=== PATIENT | female | born 1985 | race Caucasian/White ===

== ENCOUNTER 2017-11-25 12:08 | Emergency (ER) | payer OTHER ==
[2017-11-25 12:29] VITALS: BP 110/68; PULSE 74; RESP 18; TEMP 97.1
--- NOTE | 2017-11-25 12:58 | ED ---
General Adult HPI - General Chief complaint: Skin/Abscess/Foreign Body Stated complaint: hand swelling and arm drainage Time Seen by Provider: 11/25/17 12:31 Source: patient, RN notes reviewed Mode of arrival: ambulatory Limitations: no limitations - History of Present Illness Initial comments: 32-year-old female who presents emergency room today with chief complaint of an abscess to the left forearm. She does admit to a history of IV drug abuse. She states she was at [facility] this past Wednesday. She's been on antibiotics last 5 days. She states they did drain the abscess. She was worried because she still experiencing some pain locally. She does admit to some swelling. Denies any other complaints or symptoms. Patient denies any recent fever, chills, shortness of breath, chest pain, back pain, abdominal pain , nausea or vomiting, numbness or tingling,headaches or visual changes, or any other complaints. - Related Data Previous Rx's Medication Instructions Recorded Cephalexin [Keflex] 500 mg PO Q12HR 7 Days cap 11/25/17 Allergies Allergy/AdvReac Type Severity Reaction Status Date / Time erythromycin base Allergy Anaphylaxis Verified 11/25/17 12:29 Penicillins Allergy Rash/Hives Verified 11/25/17 12:29 Review of Systems ROS Statement: Those systems with pertinent positive or pertinent negative responses have been documented in the HPI. ROS Other: All systems not noted in ROS Statement are negative. Past Medical History Past Medical History: No Reported History History of Any Multi-Drug Resistant Organisms: None Reported Past Surgical History: Section Past Psychological History: No Psychological Hx Reported Smoking Status: Current every day smoker Past Alcohol Use History: None Reported Past Drug Use History: IV Drug Use General Exam - General Exam Comments Initial Comments: General: The patient is awake and alert, in no distress, and does not appear acutely ill. Neck: The neck is supple, there is no tenderness or JVD. Cardiovascular: There is a regular rate and rhythm. No murmur, rub or gallop is appreciated. Respiratory: Lungs are clear to auscultation, respirations are non-labored, breath sounds are equal. No wheezes, stridor, rales, or rhonchi. Musculoskeletal: Full range motion. Sensation intact. Pulses equal bilateral 2 + per strength is 5/5. Neurological: A&O x 3. CN II-XII intact, There are no obvious motor or sensory deficits. Coordination appears grossly intact. Speech is normal. Skin: Patient's abscess shows improvement there is no redness swelling or fluctuance locally to the abscess area that is at the midforearm. She does have a wound that is draining just bloody drainage at this time. Mild swelling down to the hand which appears to be from the wrap that was too tight on the forearm. There is no redness swelling or sign of infection in these areas. Psychiatric: Normal mood and affect. Limitations: no limitations Course Vital Signs 11/25/17 12:25 Temperature 97.1 F L Pulse Rate 74 Respiratory 18 Rate Blood Pressure 110/68 O2 Sat by Pulse 98 Oximetry Medical Decision Making - Medical Decision Making Case was discussed with attending physician Dr. [place]. Patient's vitals are stable is no fever. The abscess appears to be healing well. The swelling down to the hand appears to be from the wrap and dressing that she had that was too tight. Advised patient to make sure that this should elevate the area. Advised to use warm compresses. She is asking for something for pain and advised to continue with anti-inflammatories at this time will be provided a antibiotic of Keflex to be added to the Bactrim to cover for infection. Disposition Clinical Impression: Abscess Disposition: HOME SELF-CARE Condition: Good Instructions: Abscess (ED) Additional Instructions: Please use medication as discussed. Please follow-up with family doctor in the next 2 days of symptoms have not improved. Please return to emergency room if the symptoms increase or worsen or for any other concerns. Prescriptions: Cephalexin [Keflex] 500 mg PO Q12HR 7 Days cap Referrals: None,Stated [Primary Care Provider] - 1-2 days Time of Disposition: 13:00
== END 2017-11-25 13:17 | disposition home or self-care (01) ==
LOC: EC 12:08
DX: L02.414 Cutaneous abscess of left upper limb (principal); F17.200 Nicotine dependence, unspecified, uncomplicated; Z88.0 Allergy status to penicillin; Z88.1 Allergy status to other antibiotic agents
CPT/HCPCS: 99282

== ENCOUNTER 2024-02-18 13:11 | Emergency (ER) | payer OTHER ==
--- NOTE | 2024-02-18 13:50 | ED ---
Abdominal Pain HPI - General Source: patient, RN notes reviewed Mode of arrival: ambulatory Limitations: no limitations <Peyton Diego - Last Filed: 02/18/24 13:49> - General Source: RN notes reviewed <Stephania Last - Last Filed: 02/18/24 18:31> - General Chief Complaint: Abdominal Pain Stated Complaint: Abd pain Time Seen by Provider: 02/18/24 13:50 - History of Present Illness Initial Comments: Note: 38-year-old female presented to ER with a chief complaint of abdominal pain. She reports she has been experiencing generalized abdominal pain for the past 2 days. She denies any fevers, nausea, vomiting, constipation/diarrhea or urinary complaints. (Peyton Diego) 38-year-old female presenting to the ER with chief complaint of abdominal pain x 2 days. She reports she feels as though there is a "knot in her stomach". States the knot is more prominent when she stands. There is pain surrounding the knot and patient is experiencing some nausea as well but denies fever, vomiting, diarrhea, dysuria, urinary frequency or urgency. (Stephania Last) - Related Data Previous Rx's Medication Instructions Recorded Cephalexin [Keflex] 500 mg PO Q12HR 7 Days cap 11/25/17 Allergies Allergy/AdvReac Type Severity Reaction Status Date / Time erythromycin base Allergy Anaphylaxis Verified 02/18/24 13:34 Penicillins Allergy Rash/Hives Verified 02/18/24 13:34 Review of Systems ROS Other: All systems not noted in ROS Statement are negative. <Peyton Diego - Last Filed: 02/18/24 13:49> ROS Other: All systems not noted in ROS Statement are negative. <Stephania Last - Last Filed: 02/18/24 18:31> ROS Statement: Those systems with pertinent positive or pertinent negative responses have been documented in the HPI. Past Medical History Past Medical History: No Reported History History of Any Multi-Drug Resistant Organisms: None Reported Past Surgical History: Section Past Psychological History: No Psychological Hx Reported Past Alcohol Use History: None Reported Past Drug Use History: IV Drug Use <Peyton Diego - Last Filed: 02/18/24 13:49> General Exam <Peyton Digeo - Last Filed: 02/18/24 13:49> General appearance: alert, in no apparent distress Head exam: Present: atraumatic, normocephalic, normal inspection Eye exam: Present: normal appearance, PERRL, EOMI. Absent: scleral icterus, conjunctival injection, periorbital swelling ENT exam: Present: normal exam, mucous membranes moist Neck exam: Present: normal inspection. Absent: tenderness, meningismus, lymphadenopathy Respiratory exam: Present: normal lung sounds bilaterally. Absent: respiratory distress, wheezes, rales, rhonchi, stridor Cardiovascular Exam: Present: regular rate, normal rhythm, normal heart sounds. Absent: systolic murmur, diastolic murmur, rubs, gallop, clicks GI/Abdominal exam: Present: soft, normal bowel sounds, hernia (Hernia palpated above umbilicus with mild tenderness. No discoloration or skin changes to the area.). Absent: distended, tenderness, guarding, rebound, rigid Extremities exam: Present: normal inspection, full ROM, normal capillary refill. Absent: tenderness, pedal edema, joint swelling, calf tenderness Neurological exam: Present: alert, oriented X3, CN II-XII intact Psychiatric exam: Present: normal affect, normal mood Skin exam: Present: warm, dry, intact, normal color. Absent: rash <Stephania Last - Last Filed: 02/18/24 18:31> - General Exam Comments Initial Comments: Visual Physical Exam Vital signs reviewed General: Well-appearing, nontoxic, no acute distress. Head: Normocephalic, atraumatic Eyes: PERRLA, EOMI ENT: Airway patent Chest: Nonlabored breathing Skin: No visual rash, normal skin tone Neuro: Alert and oriented 3 Musculoskeletal: No gross abnormalities (Peyton Diego) Course Vital Signs 02/18/24 02/18/24 02/18/24 13:30 17:21 17:52 Temperature 98.2 F 98 F 98 F Pulse Rate 71 67 69 Respiratory 18 18 18 Rate Blood Pressure 127/89 130/81 O2 Sat by Pulse 100 99 99 Oximetry Medical Decision Making <Peyton Diego - Last Filed: 02/18/24 13:49> - Lab Data Result diagrams: 02/18/24 14:19 02/18/24 14:19 <Stephania Last - Last Filed: 02/18/24 18:31> - Medical Decision Making I performed the quick note portion of this chart. Electronically signed by Peyton Diego PA-C (Peyton Diego) Was pt. sent in by a medical professional or institution (KRISTINE Urbano, PLAYERS ASSISTANT, urgent care, hospital, or custodial...) When possible be specific @ -Sent by [facility] for ventral hernia Did you speak to anyone other than the patient for history (EMS, parent, family, police, friend...)? What history was obtained from this source @ -No Did you review nursing and triage notes (agree or disagree)? Why? @ -I reviewed and agree with nursing and triage notes Were old charts reviewed (outside hosp., previous admission, EMS record, old EKG, old radiological studies, urgent care reports/EKG's, custodial records)? Report findings @ -No old charts were reviewed Differential Diagnosis (chest pain, altered mental status, abdominal pain women, abdominal pain men, vaginal bleeding, weakness, fever, dyspnea, syncope, headache, dizziness, GI bleed, back pain, seizure, CVA, palpatations, mental health, musculoskeletal)? @ -Differential Abdominal Pain Women: Appendicitis, Cholecystitis, diverticulosis, ischemic bowel, pancreatitis, hepatitis, UTI, gastroenteritis, AAA, incarcerated hernia, bowel obstruction, co nstipation, inflammatory bowel, hepatitis, peptic ulcer disease, splenic infarction, perforated viscus, vulvitis, ovarian torsion, PID, kidney stone, placenta abruption, this is not meant to be an all-inclusive list EKG interpreted by me (3pts min.). @ -None X-rays interpreted by me (1pt min.). @ -None done CT interpreted by me (1pt min.). @ -None done U/S interpreted by me (1pt. min.). @ -None done What testing was considered but not performed or refused? (CT, X-rays, U/S, labs)? Why? @ -Imaging not indicated at this time due to no signs or symptoms of strangulation What meds were considered but not given or refused? Why? @ -None Did you discuss the management of the patient with other professionals (professionals i.e. KRISTINE Urbano, PLAYERS ASSISTANT, lab, RT, psych nurse, social services director, microbiology manager, teacher, public records officer, case loader operator)? Give summary @ -No Was smoking cessation discussed for >3mins.? @ -No Was critical care preformed (if so, how long)? @ -No Were there social determinants of health that impacted care today? How? (Homelessness, low income, unemployed, alcoholism, drug addiction, transport ation, low edu. Level, literacy, decrease access to med. care, senior living, rehab)? @ -No Was there de-escalation of care discussed even if they declined (Discuss DNR or withdrawal of care, Hospice)? DNR status @ -No What co-morbidities impacted this encounter? (DM, HTN, Smoking, COPD, CAD, Cancer, CVA, ARF, Chemo, Hep., AIDS, mental health diagnosis, sleep apnea, morbid obesity)? @ -None Was patient admitted / discharged? Hospital course, mention meds given and route, prescriptions, significant lab abnormalities, going to OR and other pertinent info. @ -Patient was discharged. Patient was seen and evaluated for abdominal pain x 2 days. Vital signs are within normal limits. Physical examination remarkable for reducible umbilical hernia with no signs of strangulation. Lab work unremarkable, lactic acid negative. Urine is unremarkable. Discussed with patient diagnosis of umbilical hernia, discussed there are no signs of strangulation or incarceration upon examination today. Surgery referral given. Strict return/alarm symptoms discussed with patient in detail and patient shows understanding and agrees to plan. Patient discharged in stable condition. Case discussed with Dr. Mike. Undiagnosed new problem with uncertain prognosis? @ -No Drug Therapy requiring intensive monitoring for toxicity (Heparin, Nitro, Insulin, Cardizem)? @ -No Were any procedures done? @ -No Diagnosis/symptom? @ -Umbilical hernia Acute, or Chronic, or Acute on Chronic? @ -Acute Uncomplicated (without systemic symptoms) or Complicated (systemic symptoms)? @ -Uncomplicated Side effects of treatment? @ -No Exacerbation, Progression, or Severe Exacerbation? @ -No Poses a threat to life or bodily function? How? (Chest pain, USA, [place], pneumonia, PE, COPD, DKA, ARF, appy, cholecystitis, CVA, Diverticulitis, Homicidal, Suicidal, threat to staff... and all critical care pts) @ -Low likelihood (Stephania Last) - Lab Data Lab Results 02/18/24 02/18/24 02/18/24 Range/Units 14:19 14:19 14:19 WBC 4.4 (3.8-10.6) k/uL RBC 4.34 (3.80-5.40) m/uL Hgb 11.5 (11.4-16.0) gm/dL Hct 35.7 (34.0-46.0) % MCV 82.1 (80.0-100.0) fL MCH 26.6 (25.0-35.0) pg MCHC 32.3 (31.0-37.0) g/dL RDW 15.9 H (11.5-15.5) % Plt Count 153 (150-450) k/uL MPV 9.5 Neutrophils % 47 % Lymphocytes % 40 % Monocytes % 5 % Eosinophils % 5 % Basophils % 1 % Neutrophils # 2.1 (1.3-7.7) k/uL Lymphocytes # 1.8 (1.0-4.8) k/uL Monocytes # 0.2 (0-1.0) k/uL Eosinophils # 0.2 (0-0.7) k/uL Basophils # 0.0 (0-0.2) k/uL Sodium (137-145) mmol/L Potassium (3.5-5.1) mmol/L Chloride (98-107) mmol/L Carbon Dioxide (22-30) mmol/L Anion Gap mmol/L BUN (7-17) mg/dL Creatinine (0.52-1.04) mg/dL Est GFR (CKD-EPI)AfAm (>60 ml/min/1.73 sqM) Est GFR (CKD-EPI)NonAf (>60 ml/min/1.73 sqM) Glucose (74-99) mg/dL Plasma Lactic Acid Logan (0.7-2.0) mmol/L Calcium (8.4-10.2) mg/dL Total Bilirubin (0.2-1.3) mg/dL AST (14-36) U/L ALT (4-34) U/L Alkaline Phosphatase (38-126) U/L Total Protein (6.3-8.2) g/dL Albumin (3.5-5.0) g/dL Amylase (30-110) U/L Lipase (23-300) U/L Urine Color Light Yellow Urine Appearance Clear (Clear) Urine pH 7.5 (5.0-8.0) Ur Specific Eva 1.013 (1.001-1.035) Urine Protein Negative (Negative) Urine Glucose (UA) Negative (Negative) Urine Ketones Negative (Negative) Urine Blood Negative (Negative) Urine Nitrite Negative (Negative) Urine Bilirubin Negative (Negative) Urine Urobilinogen <2.0 (<2.0) mg/dL Ur Leukocyte Esterase Negative (Negative) Urine HCG, Qual Not Detected (Not Detectd) 02/18/24 02/18/24 Range/Units 14:19 14:19 WBC (3.8-10.6) k/uL RBC (3.80-5.40) m/uL Hgb (11.4-16.0) gm/dL Hct (34.0-46.0) % MCV (80.0-100.0) fL MCH (25.0-35.0) pg MCHC (31.0-37.0) g/dL RDW (11.5-15.5) % Plt Count (150-450) k/uL MPV Neutrophils % % Lymphocytes % % Monocytes % % Eosinophils % % Basophils % % Neutrophils # (1.3-7.7) k/uL Lymphocytes # (1.0-4.8) k/uL Monocytes # (0-1.0) k/uL Eosinophils # (0-0.7) k/uL Basophils # (0-0.2) k/uL Sodium 134 L (137-145) mmol/L Potassium 5.1 (3.5-5.1) mmol/L Chloride 105 (98-107) mmol/L Carbon Dioxide 26 (22-30) mmol/L Anion Gap 3 mmol/L BUN 21 H (7-17) mg/dL Creatinine 0.95 (0.52-1.04) mg/dL Est GFR (CKD-EPI)AfAm 88 (>60 ml/min/1.73 sqM) Est GFR (CKD-EPI)NonAf 77 (>60 ml/min/1.73 sqM) Glucose 93 (74-99) mg/dL Plasma Lactic Acid Logan 0.9 (0.7-2.0) mmol/L Calcium 8.5 (8.4-10.2) mg/dL Total Bilirubin 0.4 (0.2-1.3) mg/dL AST 100 H (14-36) U/L ALT 78 H (4-34) U/L Alkaline Phosphatase 107 (38-126) U/L Total Protein 6.2 L (6.3-8.2) g/dL Albumin 3.3 L (3.5-5.0) g/dL Amylase 66 (30-110) U/L Lipase 186 (23-300) U/L Urine Color Urine Appearance (Clear) Urine pH (5.0-8.0) Ur Specific Eva (1.001-1.035) Urine Protein (Negative) Urine Glucose (UA) (Negative) Urine Ketones (Negative) Urine Blood (Negative) Urine Nitrite (Negative) Urine Bilirubin (Negative) Urine Urobilinogen (<2.0) mg/dL Ur Leukocyte Esterase (Negative) Urine HCG, Qual (Not Detectd) Disposition <Peyton Diego - Last Filed: 02/18/24 13:49> Is patient prescribed a controlled substance at d/c from ED?: No Time of Disposition: 17:29 <Stephania Last - Last Filed: 02/18/24 18:31> Clinical Impression: Umbilical hernia without obstruction or gangrene Disposition: HOME SELF-CARE Condition: Stable Instructions (If sedation given, give patient instructions): Umbilical Hernia (ED) Additional Instructions: Please follow-up with surgery. Please return to the Emergency Department if symptoms worsen or any other concerns. Referrals: Jet Reid DO [Primary Care Provider] - 1-2 days Helder Dhillon MD [STAFF PHYSICIAN] - 1-2 days
[2024-02-18 14:13] VITALS: RESP 18
[2024-02-18 15:00] LABS: Appearance,Urine Clear (Clear); Bilirubin,Urine Negative (Negative); Blood,Urine Negative (Negative); Color,Urine Light Yellow; Glucose,Urine (UA) Negative (Negative); Ketones,Urine Negative (Negative); Leukocyte Esterase,Urine Negative (Negative); Nitrite,Urine Negative (Negative); PH, Urine 7.5 (5.0-8.0); Protein,Urine Negative (Negative); Specific Gravity,Urine 1.013 (1.001-1.035); Urobilinogen,Urine <2.0 mg/dL (<2.0)
[2024-02-18 15:26] LABS: Basophils % (A) 1 %; Eosinophils # (A) 0.2 k/uL (0-0.7); Eosinophils % (A) 5 %; HCT 35.7 % (34.0-46.0); HGB 11.5 gm/dL (11.4-16.0); Lymphocytes # (A) 1.8 k/uL (1.0-4.8); Lymphocytes % (A) 40 %; MCH 26.6 pg (25.0-35.0); MCHC 32.3 g/dL (31.0-37.0); MCV 82.1 fL (80.0-100.0); Mean Platelet Volume 9.5; Monocytes # (A) 0.2 k/uL (0-1.0); Monocytes % (A) 5 %; Neutrophils # (A) 2.1 k/uL (1.3-7.7); Neutrophils % (A) 47 %; Platelet Count 153 k/uL (150-450); RBC 4.34 m/uL (3.80-5.40); RDW 15.9 % (11.5-15.5); WBC 4.4 k/uL (3.8-10.6)
[2024-02-18 15:34] LABS: ALT 78 U/L (4-34); African American GFR (CKD) 88 (>60 ml/min/1.73 sqM); Albumin 3.3 g/dL (3.5-5.0); Alkaline Phosphatase 107 U/L (38-126); Amylase 66 U/L (30-110); Anion Gap 3 mmol/L; Blood Urea Nitrogen 21 mg/dL (7-17); Calcium 8.5 mg/dL (8.4-10.2); Carbon Dioxide 26 mmol/L (22-30); Chloride 105 mmol/L (98-107); Glucose 93 mg/dL (74-99); Lipase 186 U/L (23-300); Non-African American GFR(CKD) 77 (>60 ml/min/1.73 sqM); Sodium 134 mmol/L (137-145); Total Protein 6.2 g/dL (6.3-8.2)
[2024-02-18 15:35] LABS: Potassium 5.1 mmol/L (3.5-5.1); Total Bilirubin 0.4 mg/dL (0.2-1.3)
[2024-02-18 15:36] LABS: AST 100 U/L (14-36)
[2024-02-18] MEDS: IBUPROFEN 600 MG TAB PO STA (15:47)
[2024-02-18 17:31] VITALS: TEMP 98
[2024-02-18 18:15] VITALS: BP 130/81; PULSE 69
== END 2024-02-18 17:54 | disposition home or self-care (01) ==
LOC: EC 13:11
DX: K42.9 Umbilical hernia without obstruction or gangrene (principal); Z88.0 Allergy status to penicillin; Z88.6 Allergy status to analgesic agent
CPT/HCPCS: 36415; 80053; 81003; 81025; 82150; 83605; 83690; 85025; 99284

== ENCOUNTER 2024-02-19 22:17 | Emergency (ER) | payer OTHER ==
[2024-02-19 22:58] LABS: Amorphous Sediment,Urine Rare /hpf; Appearance,Urine Clear (Clear); Bacteria,Urine Moderate /hpf; Bilirubin,Urine Negative (Negative); Blood,Urine Negative (Negative); Color,Urine Colorless; Glucose,Urine (UA) Negative (Negative); Hyaline Casts,Urine 3 /lpf (0-2); Ketones,Urine Negative (Negative); Leukocyte Esterase,Urine Small (Negative); Nitrite,Urine Negative (Negative); PH, Urine 6.5 (5.0-8.0); Protein,Urine Negative (Negative); RBC,Urine 1 /hpf (0-5); Specific Gravity,Urine 1.009 (1.001-1.035); Squamous Epithelial Cell,Urine 5 /hpf (0-4); Urobilinogen,Urine <2.0 mg/dL (<2.0); WBC,Urine 13 /hpf (0-5)
[2024-02-19 23:10] VITALS: RESP 18
--- NOTE | 2024-02-20 00:49 | ED ---
Abdominal Pain HPI - General Source: EMS Mode of arrival: EMS Limitations: no limitations <Josh Crawford - Last Filed: 02/20/24 00:49> <Melecio Olguin - Last Filed: 02/20/24 06:23> - General Chief Complaint: Abdominal Pain Stated Complaint: hernia Time Seen by Provider: 02/20/24 00:37 - History of Present Illness Initial Comments: Quicknote 38-year-old female with a known umbilical hernia presenting to the ED with complaints of abdominal pain. Patient reports known umbilical hernia and was seen for this yesterday. Patient reports continued pain prompting presentation to the ED for further evaluation. Patient reports no changes in bowel habits. (Josh Crawford) - Related Data Previous Rx's Medication Instructions Recorded Cephalexin [Keflex] 500 mg PO Q12HR 7 Days cap 11/25/17 Allergies Allergy/AdvReac Type Severity Reaction Status Date / Time erythromycin base Allergy Anaphylaxis Verified 02/19/24 22:29 Penicillins Allergy Rash/Hives Verified 02/19/24 22:29 Review of Systems ROS Other: All systems not noted in ROS Statement are negative. <Josh Crawford - Last Filed: 02/20/24 00:49> ROS Other: All systems not noted in ROS Statement are negative. <Melecio Olguin - Last Filed: 02/20/24 06:23> ROS Statement: Those systems with pertinent positive or pertinent negative responses have been documented in the HPI. Past Medical History Past Medical History: No Reported History History of Any Multi-Drug Resistant Organisms: None Reported Past Surgical History: Section Past Psychological History: No Psychological Hx Reported Smoking Status: Current every day smoker Past Alcohol Use History: None Reported Past Drug Use History: Cocaine, IV Drug Use <Josh Crawford - Last Filed: 02/20/24 00:49> General Exam Limitations: no limitations <Josh Crawford - Last Filed: 02/20/24 00:49> - General Exam Comments Initial Comments: Visual Physical Exam Vital signs reviewed General: Well-appearing, nontoxic, no acute distress. Head: Normocephalic, atraumatic Eyes: PERRLA, EOMI ENT: Airway patent Chest: Nonlabored breathing Skin: No visual rash, normal skin tone Neuro: Alert and oriented 3 Musculoskeletal: No gross abnormalities (Josh Crawford) Course Vital Signs 02/19/24 22:28 Temperature 98.2 F Pulse Rate 70 Respiratory 18 Rate Blood Pressure 117/82 O2 Sat by Pulse 100 Oximetry Medical Decision Making <TyJosh - Last Filed: 02/20/24 00:49> <Melecio Olguin - Last Filed: 02/20/24 06:23> - Medical Decision Making Quicknote portion performed. Signed Josh Crawford PA-C (Josh Crawford) Was pt. sent in by a medical professional or institution ([facility]STINE Urbano, BANK ADVISOR, urgent care, hospital, or shelter...) When possible be specific @ -No Did you speak to anyone other than the patient for history (EMS, parent, family, police, friend...)? What history was obtained from this source @ -No Did you review nursing and triage notes (agree or disagree)? Why? @ -I reviewed and agree with nursing and triage notes Were old charts reviewed (outside hosp., previous admission, EMS record, old EKG, old radiological studies, urgent care reports/EKG's, shelter records)? Report findings @ -No old charts were reviewed Differential Abdominal Pain Women: Appendicitis, Cholecystitis, diverticulosis, ischemic bowel, pancreatitis, hepatitis, UTI, gastroenteritis, AAA, incarcerated hernia, bowel obstruction, constipation, inflammatory bowel, hepatitis, peptic ulcer disease, splenic infarction, perforated viscus, vulvitis, ovarian torsion, PID, kidney stone, placenta abruption, this is not meant to be an all-inclusive list EKG interpreted by me (3pts min.). @ -As above X-rays interpreted by me (1pt min.). @ -None done CT interpreted by me (1pt min.). @ -CT showing 2 ventral hernias without bowel obstruction. U/S interpreted by me (1pt. min.). @ -None done What testing was considered but not performed or refused? (CT, X-rays, U/S, labs)? Why? @ -None What meds were considered but not given or refused? Why? @ -None Did you discuss the management of the patient with other professionals (professionals i.e. , KRISTINE, BANK ADVISOR, lab, RT, psych nurse, social work specialist, photo specialist, teacher, technology officer, case mgr)? Give summary @ -No Was smoking cessation discussed for >3mins.? @ -No Was critical care preformed (if so, how long)? @ -No Were there social determinants of health that impacted care today? How? (H omelessness, low income, unemployed, alcoholism, drug addiction, transportation, low edu. Level, literacy, decrease access to med. care, long-term, rehab)? @ -No Was there de-escalation of care discussed even if they declined (Discuss DNR or withdrawal of care, Hospice)? DNR status @ -No What co-morbidities impacted this encounter? (DM, HTN, Smoking, COPD, CAD, Cancer, CVA, ARF, Chemo, Hep., AIDS, mental health diagnosis, sleep apnea, morbid obesity)? @ -None Was patient admitted / discharged? Hospital course, mention meds given and route, prescriptions, significant lab abnormalities, going to OR and other pertinent info. @ -38-year-old female with abdominal discomfort, ventral hernias which are reducible on exam. CT does confirm these hernias with surrounding edema. I did reevaluate the patient after CT and the hernias were again reducible. I do feel this patient is stable for discharge with outpatient surgical evaluation. Return parameters discussed. Undiagnosed new problem with uncertain prognosis? @ -No Drug Therapy requiring intensive monitoring for toxicity (Heparin, Nitro, Insulin, Cardizem)? @ -No Were any procedures done? @ -No Diagnosis/symptom? @ -Ventral abdominal hernia Acute, or Chronic, or Acute on Chronic? @ -[Acute on chronic Uncomplicated (without systemic symptoms) or Complicated (systemic symptoms)? @ -Default Side effects of treatment? @ -No Exacerbation, Progression, or Severe Exacerbation? @ -No Poses a threat to life or bodily function? How? (Chest pain, USA, CT, pneumonia, PE, COPD, DKA, ARF, appy, cholecystitis, CVA, Diverticulitis, Homicidal, Suicidal, threat to staff... and all critical care pts) @ -No (Melecio Olguin) - Lab Data Lab Results 02/19/24 02/19/24 Range/Units 22:43 22:43 Urine Color Colorless Urine Appearance Clear (Clear) Urine pH 6.5 (5.0-8.0) Ur Specific [place] 1.009 (1.001-1.035) Urine Protein Negative (Negative) Urine Glucose (UA) Negative (Negative) Urine Ketones Negative (Negative) Urine Blood Negative (Negative) Urine Nitrite Negative (Negative) Urine Bilirubin Negative (Negative) Urine Urobilinogen <2.0 (<2.0) mg/dL Ur Leukocyte Esterase Small H (Negative) Urine RBC 1 (0-5) /hpf Urine WBC 13 H (0-5) /hpf Ur Squamous Epith Cells 5 H (0-4) /hpf Amorphous Sediment Rare H (None) /hpf Urine Bacteria Moderate H (None) /hpf Hyaline Casts 3 H (0-2) /lpf Urine HCG, Qual Not Detected (Not Detectd) Disposition <Josh Crawford - Last Filed: 02/20/24 00:49> Is patient prescribed a controlled substance at d/c from ED?: No Time of Disposition: 06:22 <Melecio Olguin - Last Filed: 02/20/24 06:23> Clinical Impression: Abdominal hernia Disposition: HOME SELF-CARE Condition: Fair Instructions (If sedation given, give patient instructions): Umbilical Hernia (ED) Referrals: Jet Reid DO [Primary Care Provider] - 1-2 days Shalom Sheridan MD [STAFF PHYSICIAN] - 1-2 days Helder Dhillon MD [STAFF PHYSICIAN] - 1-2 days
[2024-02-20] MEDS: KETOROLAC 15 MG/ML 1 ML VIAL IVP STA (03:31)
[2024-02-20] MEDS: SODIUM CHLORIDE 0.9% 1,000 ML IV ONE (03:56)
--- NOTE | 2024-02-20 05:40 | CT ---
EXAMINATION TYPE: CT abdomen pelvis wo con DATE OF EXAM: 02/20/2024 HISTORY: Hernia pain. Periumbilical pain. CT DLP: 670.7 mGycm. Automated Exposure Control for Dose Reduction was Utilized. TECHNIQUE: CT scan of the abdomen and pelvis is performed without oral or IV contrast. COMPARISON: NONE FINDINGS: Within the limitations of a non-contrast study, the following observations are made. LUNG BASES: Dependent opacity favors atelectasis. LIVER/GB: No significant abnormality is appreciated. PANCREAS: No significant abnormality is seen. SPLEEN: Splenomegaly is noted measuring 15.7 cm long axis coronal image 52. ADRENALS: No significant abnormality is seen. KIDNEYS: No renal stones or hydronephrosis is seen bilaterally. BOWEL: Suboptimal evaluation without enteric contrast. Prominent fluid-filled small bowel loops in th e lower abdomen. No greater than 3 cm dilatation small bowel dilatation is seen. Small bowel feces si gn and terminal ileum consistent with delayed passage of ingested material to colonic level.. GENITAL ORGANS: Anteverted uterus. LYMPH NODES: No greater than 1cm abdominal or pelvic lymph nodes are appreciated. OSSEOUS STRUCTURES: No significant abnormality is seen. OTHER: In the anterior abdominal wall there is a 2.2 cm neck hernia containing fat and mesenteric ve ssels in the midline above the umbilicus axial image 67 and the second left-sided periumbilical herni a just inferior to this with 2.5 cm neck axial image 85 containing fat and mesenteric vessels. Overal l mild diffuse subcutaneous edema. IMPRESSION: There are 2 ventral hernias containing fat and tiny mesenteric vessels and mild diffuse s ubcutaneous edema and/or soft tissue anasarca noted.
[2024-02-20 06:59] VITALS: BP 118/84; PULSE 78; TEMP 98.1
== END 2024-02-20 06:45 | disposition home or self-care (01) ==
LOC: EC 22:17
DX: K42.9 Umbilical hernia without obstruction or gangrene (principal); F17.200 Nicotine dependence, unspecified, uncomplicated; Z88.0 Allergy status to penicillin; Z88.1 Allergy status to other antibiotic agents
CPT/HCPCS: 99284 ×2; 96374 ×2; 81001; 81025; 74176; J1885